=== PATIENT | female | born 1970 | race Caucasian/White ===

== ENCOUNTER → 2024-02-15 | Outpatient (CLI) | payer BC ==
[2024-02-15 09:34] VITALS: BP 147/85; PULSE 75; RESP 17; TEMP 98.3
--- NOTE | 2024-02-15 10:20 | P.HPOB ---
History of Present Illness H&P Date: 02/15/24 Chief Complaint: The patient is here for her routine gynecologic exam. This is a 53-year-old with an LMP of 01/12/2024. The patient is here to establish with this office. It has been more than 8 years since her last pelvic exam. The patient states her menstrual periods were regular every month until about 4 years ago when they became less regular and are now about every 1 to 2 months. They are typically lasting about 4 days and are side piece coverer in flow. She thinks she has been experiencing symptoms from the menopausal change including weight gain, feeling emotional, anxiety, itchy skin, and insomnia. She denies any significant hot flashes. Many years ago she was found to have 2 cervices. She states she does not have to uterus is or to vagina's. She did not have any complications with her pregnancies. She uses condoms for control. She has mentioned that she has occasional slight urinary leakage with laughing and sneezing. This has been since her . Review of Systems Her weight has fluctuated between 160 and 188 over the past couple of years. She denies respiratory, cardiac, or GI problems. Past Medical History Past Medical History: No Reported History Additional Past Medical History / Comment(s): Head trauma in 2001 which led to intermittent VERTIGO and anxiety. 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 History of Any Multi-Drug Resistant Organisms: None Reported Past Surgical History: No Surgical Hx Reported Past Anesthesia/Blood Transfusion Reactions: No Reported Reaction Past Psychological History: Anxiety, Panic Disorder Smoking Status: Former smoker Past Alcohol Use History: Rare (3 drinks per year.) Additional Past Alcohol Use History / Comment(s): Quit smoking in 2001. Past Drug Use History: None Reported Additional History: She has been since 1991 and does not work outside of the home. - Past Family History Mother Family Medical History: Dementia Additional Family Medical History / Comment(s): . Father Family Medical History: Cancer Additional Family Medical History / Comment(s): Leukemia. . Brother(s) Family Medical History: Cancer, Myocardial Infarction (PR) Additional Family Medical History / Comment(s): 1 brother had an PR. Another brother had prostate cancer. Medications and Allergies Home Medications Medication Instructions Recorded Confirmed Type No Known Home Medications 02/15/24 02/15/24 History Allergies Allergy/AdvReac Type Severity Reaction Status Date / Time Penicillins Allergy Rash/Hives Unverified 02/15/24 08:48 Sulfa (Sulfonamide Allergy Rash/Hives Unverified 02/15/24 08:48 Antibiotics) Exam Vital Signs Temp Pulse Resp BP Pulse Ox 02/15/24 08:49 98.3 F 75 17 147/85 97 Intake and Output 02/14/24 02/15/24 02/15/24 22:59 06:59 14:59 Other: Weight 83.915 kg Height 5 feet 1 inch, weight 185 pounds, BMI 35.0 This is a well-developed well-nourished white female who is alert and oriented times 3 in no acute distress. HEENT: Within normal limits. NECK: Supple without mass or thyromegaly. CHEST AND LUNGS: Clear to auscultation. HEART: Regular rate and rhythm. BREASTS: Are without mass or discharge. AXILLARY EXAM: Negative for adenopathy. BACK: Negative for CVA tenderness. ABDOMEN: Soft, nontender, without palpable masses. PELVIC EXAM: Normal external genitalia. Cervix and vagina appear normal. With digital examination, it was felt that there may be 2 cervices with a small opening adjacent to the larger cervical opening. There is no unusual discharge. There is no evidence of prolapse. The uterus is midposition, nongravid size and nontender. There are no palpable adnexal masses or tenderness. RECTAL EXAM: Rectovaginal exam is negative for mass or tenderness and is negative for occult blood. EXTREMITIES: Nontender. IMPRESSION: 1. 53-year-old perimenopausal female with history of 2 cervices and findings on exam consistent with this. 2. Mild menstrual irregularity and perimenopausal symptoms including weight gain, emotional changes, worsening anxiety, and insomnia. 3. Mild stress urinary incontinence with laughing and sneezing. PLAN: 1. Pap smear cotest was performed. Sampling was obtained from both cervices and sent as a single specimen. 2. Self breast awareness was discussed with the patient. We have also discussed symptoms associated with inflammatory breast cancer. 3. Baseline screening mammogram was recommended and the order slip was given to the patient for this. 4. The patient will keep a menstrual calendar and call if menstrual problems. We have discussed options for her perimenopausal symptoms including possible SSRI medication and possible hormone replacement therapy, if symptoms are worsening. 5. We discussed the importance of good nutrition and regular exercise. 6. Osteoporosis prevention was discussed. I have stressed the importance of adequate calcium, vitamin D and regular exercise. Recommended amounts of calcium and vitamin D were also discussed. 7. Kegel exercises and timed voids were discussed. If worsening incontinence symptoms she was instructed to call. 8. She was advised to return in one year for her annual well woman exam needed. 9. I have recommended that she reestablish with her PCP since it has been a few years since she has seen her PCP.
== END ==
LOC: WWCWWP 08:29
PROVIDERS: ATTEND Obstetrics & Gynecology
DX: N92.6 Irregular menstruation, unspecified (principal); N39.3 Stress incontinence (female) (male); Z88.0 Allergy status to penicillin; Z88.2 Allergy status to sulfonamides